=== PATIENT | female | born 1955 | race Caucasian/White ===

== ENCOUNTER → 2017-04-12 | Outpatient (CLI) | payer BC ==
[~2017-04-12] MED LIST: FLEXERIL10 MG PO; MEDROL 4MG. DOSE4 MG PO; VICODIN 5/500 T1 TAB PO
[2017-04-12 11:34] LABS: BUN 16 mg/dL (7-18)
[2017-04-12 11:37] LABS: GFR (ESTIMATED) 73 ML/MIN (59-)
== END ==
LOC: LAB 09:28
PROVIDERS: Internal Medicine Adolescent Medicine
DX: E78.5 Hyperlipidemia, unspecified (principal)